=== PATIENT | female | born 1955 | race Caucasian/White ===

== ENCOUNTER 2018-05-08 08:00 | Inpatient (IN) | payer OTHER ==
[~2018-05-08] VITALS: Ht 160 cm; Wt 81.6 kg
[2018-05-08] MEDS ORDERED: AVALIDE PO (10:42)
[2018-05-08] MEDS ORDERED: GLIPIZIDE10 MG PO (10:42)
[2018-05-08] MEDS ORDERED: CATAFLAN PO (10:43)
[2018-05-16] MEDS ORDERED: ASA-EC81 MG PO (10:56)
[2018-05-16] MEDS ORDERED: IRBESARTAN-HCT1 EACH PO (10:56)
[2018-05-16] MEDS ORDERED: GLIPIZIDE10 MG PO (10:56)
== END 2018-05-17 16:52 | DRG 470 ==
LOC: ADM 08:00 → EDSTATUS 08:00 → O/R 05-15 05:28 → SURH 05-15 05:28 → SURG 05-15 08:00 → SURH 05-15 16:43
PROVIDERS: Orthopaedic Surgery
PROC: 0SRD0J9 Replacement of Left Knee Joint with Synthetic Substitute, Cemented, Open Approach (ICD-10-PCS; principal; 2018-05-15 09:45)
DX: M17.12 Unilateral primary osteoarthritis, left knee (principal); D62 Acute posthemorrhagic anemia; I10 Essential (primary) hypertension; E11.9 Type 2 diabetes mellitus without complications; E03.8 Other specified hypothyroidism